=== PATIENT | female | born 1940 | race Caucasian/White ===

== ENCOUNTER 2022-04-07 10:18 | Emergency (ER) | payer MEDICARE ==
[~2022-04-07] VITALS: Ht 157.5 cm; Wt 63.6 kg
[2022-04-07 10:35] VITALS: BP 160/89
== END 2022-04-07 12:30 | disposition left against medical advice (07) ==
LOC: EMS 10:25
DX: S01.91XA Laceration without foreign body of unspecified part of head, initial encounter (principal); Z90.49 Acquired absence of other specified parts of digestive tract; Z88.0 Allergy status to penicillin; Z88.2 Allergy status to sulfonamides; Z98.890 Other specified postprocedural states; W19.XXXA Unspecified fall, initial encounter; Y93.89 Activity, other specified; Y92.89 Other specified places as the place of occurrence of the external cause; Y99.8 Other external cause status
CPT/HCPCS: 99281; Z7502